=== PATIENT | female | born 1965 | race Caucasian/White ===

== ENCOUNTER 2024-05-27 07:08 | Inpatient (IN) | payer BC ==
[~2024-05-27] VITALS: Ht 167.6 cm; Wt 44.0 kg
[2024-05-27] VITALS (46 sets, daily range): BP systolic 82–113; BP diastolic 45–85; TEMP 92–98.8; O2SAT 97–100
[2024-05-27] MEDS ORDERED: TRAZ150T75 PO (07:33)
[2024-05-27] MEDS ORDERED: ALPR0.5T8 PO (07:33)
[2024-05-27 07:43] LABS: BASOPHILS % (AUTO) 0.3 % (0.0-2.0); EOSINOPHILS # (AUTO) 0.1 K/uL (0.0-0.7); HEMATOCRIT 39.7 % (31.2-41.9); HEMOGLOBIN 13.6 g/dL (10.9-14.3); LYMPHOCYTES # (AUTO) 1.4 K/uL (0.8-4.8); LYMPHOCYTES % (AUTO) 31.1 % (20.5-51.5); MEAN CORPUSCULAR HEMOGLOBIN 30.8 uug (24.7-32.8); MEAN CORPUSCULAR HGB CONC 34 g/dL (32.3-35.6); MEAN CORPUSCULAR VOLUME 89.8 fL (75.5-95.3); MONOCYTES # (AUTO) 0.4 K/uL (0.1-1.30); MONOCYTES % (AUTO) 9.5 % (0.0-11.0); NEUTROPHILS # (AUTO) 2.6 K/uL (1.8-8.9); NEUTROPHILS % (AUTO) 57.1 % (38.5-71.5); PLATELET COUNT (AUTO) 268 K/uL (179-408); RED BLOOD CELL COUNT(AUTO) 4.42 MIL/uL (3.63-4.92); RED CELL DISTRIBUTION WIDTH 13.8 % (12.3-17.7); WHITE BLOOD COUNT (AUTO) 4.6 K/uL (3.8-11.8)
[2024-05-27 07:52] LABS: CARBON DIOXIDE 28 mmol/L (21-32); CHLORIDE 105 mmol/L (98-107); CREATININE 0.8 mg/dL (0.6-1.3); GLUCOSE 116 mg/dL (74-106); POTASSIUM 3.4 mmol/L (3.5-5.1); SODIUM SERUM 143 mmol/L (136-145); UREA NITROGEN, BLOOD 12 mg/dL (7-18)
[2024-05-27 07:58] LABS: *BILIRUBIN,URIN NEGATIVE (NEGATIVE); *CLARITY,URINE CLEAR (CLEAR); *COLOR,URINE YELLOW (YELLOW); *KETONES,URINE NEGATIVE (NEGATIVE); *PROTEIN,URINE 1+ (NEGATIVE); *UROBILINOGEN,URINE 0.2 E.U./dl (NORMAL); LEUKOCYTE ESTERASE ,URINE NEGATIVE (NEGATIVE); NITRITE, URINE NEGATIVE (NEGATIVE); PH,URINE 5.5 (5.0-8.0); UGLUCOSE NEGATIVE (NEGATIVE)
[2024-05-27 08:00] LABS: AMMONIA < 10 umol/L (11-32); ETHANOL < 3 MG/DL (0-10)
[2024-05-27 08:01] LABS: ACETAMINOPHEN < 2.0 ug/mL (10-30); ALANINE AMINOTRANSFERASE 29 U/L (14-59); ALBUMIN 3.8 g/dL (3.4-5.0); ALKALINE PHOSPHATASE 63 U/L (50-136); ASPARTATE AMINOTRANSFERASE 22 U/L (15-37); BILIRUBIN,DIRECT 0.2 mg/dL (0.0-0.2); BILIRUBIN,TOTAL 1.1 mg/dL (0.2-1.0); TOTAL PROTEIN, SERUM 7.8 g/dL (6.4-8.2)
[2024-05-27 08:02] LABS: *BLOOD, URINE TRACE (NEGATIVE)
[2024-05-27 08:03] LABS: *URINE HCG, QUAL NEGATIVE (NEGATIVE)
[2024-05-27] MEDS ORDERED: TDAP DIPH,PERTUSS,TET VAC/PF 0.5 ML DISP.SYRIN IM ONE (08:12)
[2024-05-27 08:14] LABS: *AMPHETAMINE, URINE NEGATIVE (NEGATIVE); *BARBITURATE, URINE NEGATIVE (NEGATIVE); *BENZODIAZEPINE, URINE POSITIVE (NEGATIVE); *CANNABINOID, URINE NEGATIVE (NEGATIVE); *COCCAINE, URINE NEGATIVE (NEGATIVE); *OPIATE, URINE POSITIVE (NEGATIVE); *PHENCYCLIDINE SCREEN,URINE NEGATIVE (NEGATIVE); FENTANYL, URINE NEGATIVE (NEGATIVE)
[2024-05-27] MEDS: TDAP DIPH,PERTUSS,TET VAC/PF 0.5 ML DISP.SYRIN IM ONE (08:14)
[2024-05-27 08:19] LABS: DIFFERENTIAL COMMENT 1
[2024-05-27 08:24] LABS: BACTERIA,URINE MANY /HPF (NONE SEEN); RBC,URINE 0-3 /HPF (0-3); SQUAMOUS EPITHELIAL CELL,UR MANY /HPF (NONE SEEN); WBC,URINE 0-3 /HPF (0-3); YEAST,URINE FEW /HPF (NONE SEEN)
[2024-05-27] MEDS: IV NORMAL SALINE 1000 ML BAG IV ONE (08:49)
[2024-05-27] MEDS: NOREPINEPHRINE 8MG/NS 250ML 250 ML IV PRN (13:42)
[2024-05-27] MEDS: IV D5/ 0.9% NACL 1,000 ML IV PRN (13:43)
[2024-05-27] MEDS: POTASSIUM CHLORIDE 20 MEQ in IV D5/ 0.9% NACL 1,000 ML IV PRN (14:37)
[2024-05-27] MEDS ORDERED: TRAZODONE 50 MG TABLET PO PRN (16:45)
[2024-05-27] MEDS ORDERED: ALPRAZOLAM 0.5 MG TABLET PO PRN (16:45)
[2024-05-27] MEDS ORDERED: TEMAZEPAM 15 MG CAPSULE PO PRN (16:45)
[2024-05-27] MEDS ORDERED: OLANZAPINE 10 MG VIAL IM PRN (16:45)
[2024-05-27] MEDS ORDERED: MAGNESIUM HYDROXIDE 30 ML LIQUID UDC PO PRN (16:45)
[2024-05-27] MEDS: FLUCONAZOLE 200 MG/NS 100ML IV 100 MG in PREMIXED 1 EACH IV ONE (17:35)
[2024-05-28] VITALS (99 sets, daily range): BP systolic 66–142; BP diastolic 41–101; TEMP 98.5–100.2; O2SAT 94–100
[2024-05-28 05:39] LABS: BASOPHILS % (AUTO) 0.1 % (0.0-2.0); EOSINOPHILS % (AUTO) 0.1 % (0.0-7.0); HEMOGLOBIN 11.9 g/dL (10.9-14.3); LYMPHOCYTES # (AUTO) 0.9 K/uL (0.8-4.8); LYMPHOCYTES % (AUTO) 5.4 % (20.5-51.5); MEAN CORPUSCULAR HEMOGLOBIN 30.5 uug (24.7-32.8); MEAN CORPUSCULAR HGB CONC 34 g/dL (32.3-35.6); MEAN CORPUSCULAR VOLUME 90.2 fL (75.5-95.3); MONOCYTES # (AUTO) 0.6 K/uL (0.1-1.30); NEUTROPHILS # (AUTO) 14.3 K/uL (1.8-8.9); NEUTROPHILS % (AUTO) 90.4 % (38.5-71.5); PLATELET COUNT (AUTO) 253 K/uL (179-408); RED BLOOD CELL COUNT(AUTO) 3.88 MIL/uL (3.63-4.92); RED CELL DISTRIBUTION WIDTH 13.7 % (12.3-17.7); WHITE BLOOD COUNT (AUTO) 15.8 K/uL (3.8-11.8)
[2024-05-28 06:14] LABS: DIFFERENTIAL COMMENT 1
[2024-05-28 06:17] LABS: ALBUMIN 2.9 g/dL (3.4-5.0); BILIRUBIN,TOTAL 0.6 mg/dL (0.2-1.0); CALCIUM 8.3 mg/dL (8.5-10.1); CREATININE 0.8 mg/dL (0.6-1.3); PHOSPHOROUS 2.8 mg/dL (2.5-4.9); POTASSIUM 4.1 mmol/L (3.5-5.1); TOTAL PROTEIN, SERUM 6.2 g/dL (6.4-8.2)
[2024-05-28 06:28] LABS: THYROID STIMULATING HORMONE 1.793 mIU/mL (0.358-3.740)
[2024-05-28] MEDS: PANTOPRAZOLE SODIUM 40 MG TABLET.DR PO SCH (07:00)
[2024-05-28] MEDS ORDERED: PIPERACILLIN SODIUM/TAZOBACTAM 3.375 G in IV DEXTROSE 5% 50 ML IV SCH (08:15)
[2024-05-28] MEDS: PIPERACILLIN SODIUM/TAZOBACTAM 3.375 G in IV DEXTROSE 5% 100 ML IV SCH (08:38)
[2024-05-28] MEDS: NOREPINEPHRINE BITARTRATE 32 MG in IV NORMAL SALINE 218 ML IV PRN (15:55)
[2024-05-29] VITALS (59 sets, daily range): BP systolic 77–137; BP diastolic 47–91; TEMP 97–99; O2SAT 95–100
[2024-05-29 05:12] LABS: BASOPHILS % (AUTO) 0.2 % (0.0-2.0); EOSINOPHILS # (AUTO) 0.2 K/uL (0.0-0.7); EOSINOPHILS % (AUTO) 2.4 % (0.0-7.0); HEMATOCRIT 33.7 % (31.2-41.9); HEMOGLOBIN 11.3 g/dL (10.9-14.3); LYMPHOCYTES # (AUTO) 1.1 K/uL (0.8-4.8); LYMPHOCYTES % (AUTO) 12.3 % (20.5-51.5); MEAN CORPUSCULAR HEMOGLOBIN 30.3 uug (24.7-32.8); MEAN CORPUSCULAR HGB CONC 34 g/dL (32.3-35.6); MEAN CORPUSCULAR VOLUME 90.6 fL (75.5-95.3); MONOCYTES # (AUTO) 0.7 K/uL (0.1-1.30); MONOCYTES % (AUTO) 7.3 % (0.0-11.0); NEUTROPHILS # (AUTO) 7.1 K/uL (1.8-8.9); NEUTROPHILS % (AUTO) 77.8 % (38.5-71.5); PLATELET COUNT (AUTO) 207 K/uL (179-408); RED BLOOD CELL COUNT(AUTO) 3.72 MIL/uL (3.63-4.92); RED CELL DISTRIBUTION WIDTH 13.8 % (12.3-17.7); WHITE BLOOD COUNT (AUTO) 9.1 K/uL (3.8-11.8)
[2024-05-29 05:40] LABS: ALBUMIN 2.7 g/dL (3.4-5.0); BILIRUBIN,TOTAL 0.8 mg/dL (0.2-1.0); CALCIUM 8.4 mg/dL (8.5-10.1); CREATININE 0.8 mg/dL (0.6-1.3); MAGNESIUM 2.1 mg/dL (1.8-2.4); PHOSPHOROUS 2.2 mg/dL (2.5-4.9); POTASSIUM 3.6 mmol/L (3.5-5.1)
[2024-05-29] MEDS ORDERED: PIPERACILLIN SODIUM/TAZOBACTAM 3.375 G in IV DEXTROSE 5% 50 ML IV SCH (06:00)
[2024-05-29] MEDS ORDERED: TRAZODONE 50 MG TABLET PO PRN (09:45)
[2024-05-29] MEDS ORDERED: ALPRAZOLAM 0.5 MG TABLET PO PRN (09:45)
[2024-05-29] MEDS ORDERED: NOREPINEPHRINE 8MG/NS 250ML 250 ML IV PRN (10:00)
[2024-05-29] MEDS ORDERED: LEVO25TA9 PO (10:43)
[2024-05-29] MEDS ORDERED: ALEN70TA80 PO (10:44)
[2024-05-29] MEDS: PANTOPRAZOLE SODIUM 40 MG VIAL IV SCH (11:26)
[2024-05-29] MEDS ORDERED: ONDANSETRON 4 MG/2 ML VIAL IV PRN (13:30)
[2024-05-29] MEDS ORDERED: OLANZAPINE 10 MG VIAL IM PRN (13:45)
[2024-05-29] MEDS ORDERED: METOCLOPRAMIDE HCL 10 MG/2 ML VIAL IV PRN (14:00)
[2024-05-29] MEDS: SODIUM PHOSPHATE MM 15 MMOL in IV NORMAL SALINE 250 ML IV ONE (17:00)
[2024-05-29] MEDS: OLANZAPINE 10 MG VIAL IM PRN (19:48)
[2024-05-30] VITALS (20 sets, daily range): BP systolic 97–124; BP diastolic 54–90; TEMP 97–98.8; O2SAT 92–100
[2024-05-30 05:01] LABS: BASOPHILS % (AUTO) 0.4 % (0.0-2.0); EOSINOPHILS # (AUTO) 0.3 K/uL (0.0-0.7); EOSINOPHILS % (AUTO) 4.6 % (0.0-7.0); HEMATOCRIT 33.9 % (31.2-41.9); HEMOGLOBIN 11.5 g/dL (10.9-14.3); LYMPHOCYTES # (AUTO) 1.2 K/uL (0.8-4.8); LYMPHOCYTES % (AUTO) 21.1 % (20.5-51.5); MEAN CORPUSCULAR HEMOGLOBIN 30.3 uug (24.7-32.8); MEAN CORPUSCULAR HGB CONC 34 g/dL (32.3-35.6); MEAN CORPUSCULAR VOLUME 89.7 fL (75.5-95.3); MONOCYTES # (AUTO) 0.4 K/uL (0.1-1.30); MONOCYTES % (AUTO) 7.9 % (0.0-11.0); NEUTROPHILS # (AUTO) 3.7 K/uL (1.8-8.9); PLATELET COUNT (AUTO) 192 K/uL (179-408); RED BLOOD CELL COUNT(AUTO) 3.79 MIL/uL (3.63-4.92); RED CELL DISTRIBUTION WIDTH 13.8 % (12.3-17.7); WHITE BLOOD COUNT (AUTO) 5.6 K/uL (3.8-11.8)
[2024-05-30 05:13] LABS: CALCIUM 8.4 mg/dL (8.5-10.1); CREATININE 0.8 mg/dL (0.6-1.3); MAGNESIUM 1.6 mg/dL (1.8-2.4); PHOSPHOROUS 3.1 mg/dL (2.5-4.9); POTASSIUM 3.9 mmol/L (3.5-5.1)
[2024-05-30] MEDS: MAGNESIUM SULFATE/D5W 100 ML IV SCH (10:05)
[2024-05-30] MEDS: CLOTRIMAZOLE 1% CREAM 30 GM TUBE TOP SCH (10:38)
[2024-05-30] MEDS: NEOMY/BACITRAC/POLYMI OINT 28.35 GM TUBE TOP PRN (10:38)
[2024-05-30] MEDS: ENSURE ENLIVE (VAN) 240 ML LIQUID PO SCH (18:36)
[2024-05-31 04:48] VITALS: BP 99/62; TEMP 98.2; O2SAT 96
[2024-05-31 04:54] LABS: BASOPHILS % (AUTO) 0.3 % (0.0-2.0); EOSINOPHILS # (AUTO) 0.3 K/uL (0.0-0.7); HEMATOCRIT 34.7 % (31.2-41.9); HEMOGLOBIN 11.8 g/dL (10.9-14.3); LYMPHOCYTES # (AUTO) 1.2 K/uL (0.8-4.8); LYMPHOCYTES % (AUTO) 22.7 % (20.5-51.5); MEAN CORPUSCULAR HEMOGLOBIN 30.4 uug (24.7-32.8); MEAN CORPUSCULAR HGB CONC 34 g/dL (32.3-35.6); MEAN CORPUSCULAR VOLUME 89.2 fL (75.5-95.3); MONOCYTES # (AUTO) 0.5 K/uL (0.1-1.30); MONOCYTES % (AUTO) 8.8 % (0.0-11.0); NEUTROPHILS # (AUTO) 3.4 K/uL (1.8-8.9); NEUTROPHILS % (AUTO) 63.2 % (38.5-71.5); PLATELET COUNT (AUTO) 194 K/uL (179-408); RED BLOOD CELL COUNT(AUTO) 3.89 MIL/uL (3.63-4.92); RED CELL DISTRIBUTION WIDTH 13.6 % (12.3-17.7); WHITE BLOOD COUNT (AUTO) 5.3 K/uL (3.8-11.8)
[2024-05-31 05:13] LABS: CALCIUM 9.1 mg/dL (8.5-10.1); CREATININE 0.8 mg/dL (0.6-1.3); POTASSIUM 4.1 mmol/L (3.5-5.1)
[2024-05-31] MEDS ORDERED: SPIR50TA5 PO (08:34)
[2024-05-31] MEDS ORDERED: ZALE10CA PO (08:35)
[2024-05-31] MEDS ORDERED: MINO2.5T PO (08:36)
[2024-05-31] MEDS ORDERED: ALEN70TA3 PO (08:37)
[2024-05-31] MEDS ORDERED: ESCI20TA PO (08:38)
[2024-05-31] MEDS ORDERED: GABA300C PO ×2 (08:38→08:47)
[2024-05-31] MEDS ORDERED: SENN-18 PO (08:39)
[2024-05-31] MEDS ORDERED: CLOT10TR PO (08:48)
[2024-05-31] MEDS ORDERED: DEXT10TA7 PO ×2 (08:49→08:52)
[2024-05-31] MEDS ORDERED: NITR50CA PO (08:55)
[2024-05-31] MEDS ORDERED: TRAZ150T75 PO (08:56)
[2024-05-31 09:00] VITALS: BP 103/57; TEMP 97.8; O2SAT 98
[2024-05-31] MEDS ORDERED: ENSURE ENLIVE (VAN) 240 ML LIQUID PO PRN (09:15)
[2024-05-31] MEDS ORDERED: ENSURE WITH FIBER 237 ML LIQUID (CHOCOLATE) PO PRN (09:15)
[2024-05-31] MEDS: GABAPENTIN 100 MG CAPSULE PO SCH (09:53)
[2024-05-31] MEDS: ESCITALOPRAM OXALATE 10 MG TABLET PO SCH (09:53)
[2024-05-31 12:00] VITALS: BP 99/57; TEMP 98.1; O2SAT 98
[2024-05-31 16:00] VITALS: BP 128/77; TEMP 98; O2SAT 98
[2024-05-31] MEDS ORDERED: METOCLOPRAMIDE HCL 10 MG TABLET PO PRN (16:30)
[2024-05-31] MEDS: ENSURE WITH FIBER 237 ML LIQUID (CHOCOLATE) PO SCH (17:14)
[2024-05-31 19:25] VITALS: BP 114/70; TEMP 97.8; O2SAT 96
[2024-05-31] MEDS: ZOLPIDEM 5 MG TABLET PO PRN (20:47)
[2024-06-01] MEDS: ACETAMINOPHEN 325 MG TABLET PO PRN (02:40)
[2024-06-01 06:10] VITALS: BP 119/69; TEMP 98.2; O2SAT 98
[2024-06-01 06:17] VITALS: BP 122/89; TEMP 97.5; O2SAT 96
[2024-06-01 06:28] LABS: BASOPHILS % (AUTO) 0.3 % (0.0-2.0); EOSINOPHILS # (AUTO) 0.1 K/uL (0.0-0.7); HEMATOCRIT 35.7 % (31.2-41.9); HEMOGLOBIN 12.3 g/dL (10.9-14.3); LYMPHOCYTES % (AUTO) 16.3 % (20.5-51.5); MEAN CORPUSCULAR HEMOGLOBIN 30.6 uug (24.7-32.8); MEAN CORPUSCULAR HGB CONC 35 g/dL (32.3-35.6); MEAN CORPUSCULAR VOLUME 88.5 fL (75.5-95.3); MONOCYTES # (AUTO) 0.5 K/uL (0.1-1.30); MONOCYTES % (AUTO) 7.9 % (0.0-11.0); NEUTROPHILS # (AUTO) 4.5 K/uL (1.8-8.9); NEUTROPHILS % (AUTO) 73.5 % (38.5-71.5); PLATELET COUNT (AUTO) 217 K/uL (179-408); RED BLOOD CELL COUNT(AUTO) 4.04 MIL/uL (3.63-4.92); RED CELL DISTRIBUTION WIDTH 13.5 % (12.3-17.7); WHITE BLOOD COUNT (AUTO) 6.1 K/uL (3.8-11.8)
[2024-06-01 06:44] LABS: CALCIUM 9.2 mg/dL (8.5-10.1); CREATININE 0.8 mg/dL (0.6-1.3); POTASSIUM 3.6 mmol/L (3.5-5.1)
[2024-06-01 06:53] LABS: DIFFERENTIAL COMMENT 1
[2024-06-01] MEDS: PANTOPRAZOLE SODIUM 40 MG TABLET.DR PO SCH (07:07)
[2024-06-01 07:38] VITALS: BP 113/63; TEMP 97.9; O2SAT 99
[2024-06-01 15:50] VITALS: BP 113/67; TEMP 98; O2SAT 98
[2024-06-01] MEDS: TEMAZEPAM 15 MG CAPSULE PO PRN (21:49)
[2024-06-02 06:00] VITALS: BP 120/70; TEMP 98; O2SAT 100
[2024-06-02 06:44] LABS: BASOPHILS % (AUTO) 0.2 % (0.0-2.0); EOSINOPHILS # (AUTO) 0.1 K/uL (0.0-0.7); EOSINOPHILS % (AUTO) 2.3 % (0.0-7.0); HEMATOCRIT 35.7 % (31.2-41.9); HEMOGLOBIN 12.3 g/dL (10.9-14.3); LYMPHOCYTES # (AUTO) 1.1 K/uL (0.8-4.8); LYMPHOCYTES % (AUTO) 17.4 % (20.5-51.5); MEAN CORPUSCULAR HEMOGLOBIN 30.7 uug (24.7-32.8); MEAN CORPUSCULAR HGB CONC 35 g/dL (32.3-35.6); MONOCYTES # (AUTO) 0.6 K/uL (0.1-1.30); MONOCYTES % (AUTO) 9.4 % (0.0-11.0); NEUTROPHILS # (AUTO) 4.4 K/uL (1.8-8.9); NEUTROPHILS % (AUTO) 70.7 % (38.5-71.5); PLATELET COUNT (AUTO) 237 K/uL (179-408); RED BLOOD CELL COUNT(AUTO) 4.01 MIL/uL (3.63-4.92); RED CELL DISTRIBUTION WIDTH 13.7 % (12.3-17.7); WHITE BLOOD COUNT (AUTO) 6.2 K/uL (3.8-11.8)
[2024-06-02 06:55] LABS: CALCIUM 9.2 mg/dL (8.5-10.1); CREATININE 0.8 mg/dL (0.6-1.3); POTASSIUM 3.5 mmol/L (3.5-5.1)
[2024-06-02 07:01] LABS: DIFFERENTIAL COMMENT 1
[2024-06-02 12:00] VITALS: BP 118/85; TEMP 97.8; O2SAT 97
[2024-06-02 16:00] VITALS: BP 136/86; TEMP 97.5; O2SAT 97
== END 2024-06-02 16:27 | DRG 917 ==
LOC: ER 07:26 → OBSER 11:54 → UNDOADMIN 11:54 → CCU 12:08 → MEDSURG3 05-31 11:24
PROVIDERS: ADMIT Internal Medicine; ATTEND Internal Medicine
PROC: 0JQH3ZZ Repair Left Lower Arm Subcutaneous Tissue and Fascia, Percutaneous Approach (ICD-10-PCS; principal; 2024-05-27)
DX: T42.4X2A Poisoning by benzodiazepines, intentional self-harm, initial encounter (principal); E43 Unspecified severe protein-calorie malnutrition; G92.8 Other toxic encephalopathy; R57.8 Other shock; Z68.1 Body mass index [BMI] 19.9 or less, adult; F33.2 Major depressive disorder, recurrent severe without psychotic features; R64 Cachexia; Y92.002 Bathroom of unspecified non-institutional (private) residence as the place of occurrence of the external cause; S61.512A Laceration without foreign body of left wrist, initial encounter; X78.9XXA Intentional self-harm by unspecified sharp object, initial encounter; Z98.82 Breast implant status; F41.9 Anxiety disorder, unspecified; Z59.89 Other problems related to housing and economic circumstances
CPT/HCPCS: 36415; 70450; 71045; 83735; 84100; 84443; 84484; 84703; 85025; 85730; 90715; A4606; A4663; A6209; G0378; G0480; J1450; J2358; J2470; J2543; J3475; J3480; J3490; J7040; J7042